=== PATIENT | female | born 1995 | race African-American/Black ===

== ENCOUNTER 2016-03-19 20:56 | Emergency (ER) | payer OTHER ==
[~2016-03-19] VITALS: Ht 167.6 cm; Wt 72.6 kg
[~2016-03-19 20:56] MED LIST: BACTRIM DS TAB1 EACH PO; CIPRO500 MG PO; CLEOCIN HCL300 MG PO; FLAGYL500 MG PO; IBUPROFEN 600600 M1 PO; NOHOMEMEDICATIONS; ONDANSETRON HCL4 M2 PO; WAL-PROFEN200 MG PO; ZANTAC 150MG T150 MG PO; ZOFRAN4 MG PO
[2016-03-19 23:09] LABS: URINE BILIRUBIN NEGATIVE (Negative); URINE BLOOD 3+ (Negative); URINE COLOR YELLOW; URINE GLUCOSE-RANDOM* NEGATIVE (Negative); URINE KETONES TRACE (Negative); URINE LEUKOCYTES-REFLEX NEGATIVE (Negative); URINE PROTEIN (DIPSTICK) NEGATIVE (Negative); URINE UROBILINOGEN 0.2 E.U./dl (0.2-1.0)
[2016-03-19 23:19] LABS: CASTS None Seen /LPF (None Seen); SQUAMOUS >10 Many /LPF (0-3)
[2016-03-19 23:22] LABS: CRYSTALS None Seen /LPF (None Seen); URINE RBC 3-10 Few /HPF (0-2); URINE WBC-REFLEX None Seen /HPF (0-5)
[2016-03-20 00:18] LABS: ABSOLUTE NEUTROPHILS 3.7 thou/uL (1.4-8.2); BASOPHILS 0.9 % (0.0-2.0); EOSINOPHILS 5.7 % (0.0-3.0); HEMOGLOBIN 12.8 gm/dL (12.0-15.0); MCH 28.9 pg (26.0-34.0); MCHC 33.6 % (28.0-37.0); MCV 86.1 fL (80.0-100.0); MONOCYTES 5.9 % (1.0-8.0); PLATELET COUNT 349 thou/uL (150-400); POLYS 48.5 % (36.0-66.0); RBC 4.41 mil/uL (4.20-5.00); RDW 13.4 % (10.5-14.5); WBC 7.7 thou/uL (4.0-11.0)
[2016-03-20 00:26] LABS: MANUAL DIFF NO
[2016-03-20 00:58] VITALS: BP 116/62
[2016-03-23 13:07] LABS: CHLAMYDIA TRACHOMATIS-PCR Negative (Negative); NEISSERIA GONORRHEA-PCR Negative (Negative)
== END 2016-03-20 01:00 | disposition home or self-care (01) ==
LOC: ER 20:56
PROVIDERS: Physician Assistant
DX: N93.8 Other specified abnormal uterine and vaginal bleeding (principal); F31.9 Bipolar disorder, unspecified; J45.909 Unspecified asthma, uncomplicated; Z88.1 Allergy status to other antibiotic agents; Z88.0 Allergy status to penicillin; Z88.8 Allergy status to other drugs, medicaments and biological substances; Z77.22 Contact with and (suspected) exposure to environmental tobacco smoke (acute) (chronic); F10.99 Alcohol use, unspecified with unspecified alcohol-induced disorder

== ENCOUNTER 2018-01-04 17:35 | Emergency (ER) | payer OTHER ==
[~2018-01-04] VITALS: Ht 154.9 cm; Wt 73.9 kg
[~2018-01-04 17:35] MED LIST changes: +IBUPROFEN 800800 M1 PO; +LIORESAL 10 MG10 MG PO; +MOBIC15 MG PO; +NAPROSYN500 MG PO
[2018-01-04 18:03] LABS: URINE BLOOD NEGATIVE (Negative); URINE CLARITY SL CLOUDY; URINE COLOR YELLOW; URINE GLUCOSE-RANDOM* NEGATIVE (Negative); URINE KETONES 1+ (Negative); URINE NITRITE-REFLEX NEGATIVE (Negative); URINE PROTEIN (DIPSTICK) NEGATIVE (Negative); URINE SPECIFIC GRAVITY >= 1.030 (1.005-1.035); URINE UROBILINOGEN 0.2 E.U./dl (0.2-1.0)
[2018-01-04 18:04] LABS: ICTOTEST (BILI CONFIRMATORY) Negative (Negative); URINE BILIRUBIN NEGATIVE (Negative); URINE LEUKOCYTES-REFLEX 1+ (Negative)
[2018-01-04 18:16] LABS: CALCIUM OXALATE 0-3 Few /LPF (None Seen); CASTS None Seen /LPF (None Seen); MUCUS >6 Heavy strn/LPF (None Seen); SQUAMOUS >10 Many /LPF (0-3); URINE RBC 3-10 Few /HPF (0-2); URINE WBC-REFLEX 6-15 Few /HPF (0-5)
[2018-01-04 19:47] VITALS: BP 113/42
[2018-01-04] MEDS ORDERED: KEFLEX500 M1 PO (20:01)
[2018-01-04] MEDS ORDERED: METRONIDAZOLE500 M4 PO (20:01)
== END 2018-01-04 20:10 | disposition home or self-care (01) ==
LOC: ER 17:35
PROVIDERS: Emergency Medicine
DX: N76.0 Acute vaginitis (principal); B96.89 Other specified bacterial agents as the cause of diseases classified elsewhere; N39.0 Urinary tract infection, site not specified; F17.210 Nicotine dependence, cigarettes, uncomplicated; F31.9 Bipolar disorder, unspecified; J45.909 Unspecified asthma, uncomplicated; Z88.0 Allergy status to penicillin; Z88.1 Allergy status to other antibiotic agents; Z88.8 Allergy status to other drugs, medicaments and biological substances

== ENCOUNTER 2019-04-26 02:37 | Emergency (ER) | payer OTHER ==
[~2019-04-26] VITALS: Ht 154.9 cm; Wt 69.8 kg
[~2019-04-26 02:37] MED LIST changes: +KEFLEX500 M1 PO; +METRONIDAZOLE500 M4 PO
[2019-04-26 02:38] VITALS: BP 123/62
[2019-04-26] MEDS ORDERED: IBUPROFEN 800800 M1 PO (02:43)
[2019-04-26] MEDS ORDERED: CLOTRIMAZOLE45 GM VAG (02:43)
== END 2019-04-26 04:53 | disposition home or self-care (01) ==
LOC: ER 02:37
DX: N76.0 Acute vaginitis (principal); J45.909 Unspecified asthma, uncomplicated; Z79.899 Other long term (current) drug therapy; Z88.1 Allergy status to other antibiotic agents; Z88.8 Allergy status to other drugs, medicaments and biological substances; Z88.0 Allergy status to penicillin

== ENCOUNTER 2019-08-06 23:31 | Emergency (ER) | payer OTHER ==
[~2019-08-06] VITALS: Ht 154.9 cm; Wt 68.0 kg
[~2019-08-06 23:31] MED LIST changes: +CLOTRIMAZOLE45 GM VAG
[2019-08-06 23:38] VITALS: BP 121/61
[2019-08-06] MEDS ORDERED: CLARITIN10 MG PO (23:40)
[2019-08-06] MEDS ORDERED: FLONASE 0.05%50 MCG NARES (23:40)
[2019-08-07] MEDS ORDERED: METROGEL-VAGINA70 GM VAG (00:23)
== END 2019-08-07 00:31 | disposition home or self-care (01) ==
LOC: ER 23:31
DX: N89.8 Other specified noninflammatory disorders of vagina (principal); F31.9 Bipolar disorder, unspecified; J45.909 Unspecified asthma, uncomplicated; Z79.899 Other long term (current) drug therapy; Z88.1 Allergy status to other antibiotic agents; Z88.0 Allergy status to penicillin; Z88.8 Allergy status to other drugs, medicaments and biological substances

== ENCOUNTER 2020-02-25 23:12 | Emergency (ER) | payer OTHER ==
[~2020-02-25] VITALS: Ht 154.9 cm; Wt 69.8 kg
[~2020-02-25 23:12] MED LIST changes: +CLARITIN10 MG PO; +FLONASE 0.05%50 MCG NARES; +METROGEL-VAGINA70 GM VAG
[2020-02-26 00:56] VITALS: BP 120/76
== END 2020-02-26 01:04 | disposition home or self-care (01) ==
LOC: ER 23:12
DX: N89.8 Other specified noninflammatory disorders of vagina (principal); J45.909 Unspecified asthma, uncomplicated; Z79.1 Long term (current) use of non-steroidal anti-inflammatories (NSAID); Z79.899 Other long term (current) drug therapy; Z88.0 Allergy status to penicillin; Z88.1 Allergy status to other antibiotic agents; Z88.8 Allergy status to other drugs, medicaments and biological substances

== ENCOUNTER 2020-05-14 16:38 | Emergency (ER) | payer OTHER ==
[~2020-05-14] VITALS: Ht 154.9 cm; Wt 70.8 kg
[2020-05-14 16:39] VITALS: BP 135/75
[2020-05-14 17:05] LABS: URINE BILIRUBIN NEGATIVE (Negative); URINE BLOOD NEGATIVE (Negative); URINE CLARITY CLEAR; URINE COLOR YELLOW; URINE GLUCOSE-RANDOM* NEGATIVE (Negative); URINE KETONES NEGATIVE (Negative); URINE LEUKOCYTES-REFLEX NEGATIVE (Negative); URINE NITRITE-REFLEX NEGATIVE (Negative); URINE PROTEIN (DIPSTICK) NEGATIVE (Negative); URINE SPECIFIC GRAVITY 1.025 (1.005-1.035)
== END 2020-05-14 18:57 | disposition left against medical advice (07) ==
LOC: ER 16:38
PROVIDERS: Nurse Practitioner
DX: R30.0 Dysuria (principal); J45.909 Unspecified asthma, uncomplicated; Z79.1 Long term (current) use of non-steroidal anti-inflammatories (NSAID); Z79.899 Other long term (current) drug therapy; Z88.0 Allergy status to penicillin; Z88.1 Allergy status to other antibiotic agents; Z88.8 Allergy status to other drugs, medicaments and biological substances

== ENCOUNTER 2020-09-26 02:13 | Emergency (ER) | payer OTHER ==
[~2020-09-26] VITALS: Ht 160 cm; Wt 74.4 kg
[2020-09-26 02:18] VITALS: BP 110/58
[2020-09-26 04:54] LABS: URINE BILIRUBIN NEGATIVE (Negative); URINE BLOOD NEGATIVE (Negative); URINE CLARITY CLEAR; URINE COLOR YELLOW; URINE GLUCOSE-RANDOM* NEGATIVE (Negative); URINE KETONES NEGATIVE (Negative); URINE LEUKOCYTES-REFLEX NEGATIVE (Negative); URINE NITRITE-REFLEX NEGATIVE (Negative); URINE PROTEIN (DIPSTICK) NEGATIVE (Negative); URINE SPECIFIC GRAVITY 1.025 (1.005-1.035); URINE UROBILINOGEN 0.2 E.U./dl (0.2-1.0)
[2020-09-26] MEDS ORDERED: DIFLUCAN150 MG PO (05:02)
== END 2020-09-26 05:17 | disposition home or self-care (01) ==
LOC: ER 02:13
PROVIDERS: Emergency Medicine
DX: N72 Inflammatory disease of cervix uteri (principal); J45.909 Unspecified asthma, uncomplicated; Z79.899 Other long term (current) drug therapy; Z88.0 Allergy status to penicillin; Z88.1 Allergy status to other antibiotic agents; Z77.22 Contact with and (suspected) exposure to environmental tobacco smoke (acute) (chronic)

== ENCOUNTER → 2021-02-27 | Emergency (ER) | payer OTHER ==
[~2021-02-27] MED LIST changes: +DIFLUCAN150 MG PO
== END ==
LOC: ER 21:13
DX: N93.9 Abnormal uterine and vaginal bleeding, unspecified (principal); Z88.0 Allergy status to penicillin; Z88.1 Allergy status to other antibiotic agents; Z88.8 Allergy status to other drugs, medicaments and biological substances; Z53.21 Procedure and treatment not carried out due to patient leaving prior to being seen by health care provider

== ENCOUNTER 2021-04-06 18:04 | Emergency (ER) | payer OTHER ==
[~2021-04-06] VITALS: Ht 154.9 cm; Wt 71.7 kg
[2021-04-06 18:57] LABS: ABSOLUTE NEUTROPHILS 5.9 thou/uL (1.4-8.2); BASOPHILS 0.4 % (0.0-2.0); HEMATOCRIT 36.9 % (37.0-47.0); HEMOGLOBIN 12.1 gm/dL (12.0-15.0); MCH 30.4 pg (26.0-34.0); MCHC 32.7 g/dL (28.0-37.0); MONOCYTES 8.5 % (1.0-8.0); PLATELET COUNT 283 thou/uL (150-400); POLYS 65.1 % (36.0-66.0); RBC 3.97 mil/uL (4.20-5.00); RDW 14.6 % (10.5-14.5)
[2021-04-06 19:08] LABS: URINE BILIRUBIN NEGATIVE (Negative); URINE BLOOD 3+ (Negative); URINE CLARITY CLEAR; URINE COLOR YELLOW; URINE GLUCOSE-RANDOM* NEGATIVE (Negative); URINE KETONES NEGATIVE (Negative); URINE NITRITE-REFLEX NEGATIVE (Negative); URINE PROTEIN (DIPSTICK) NEGATIVE (Negative); URINE UROBILINOGEN 0.2 E.U./dl (0.2-1.0)
[2021-04-06 19:09] LABS: URINE LEUKOCYTES-REFLEX 2+ (Negative)
[2021-04-06 19:09] LABS: CALCIUM 8.7 mg/dL (8.5-10.1); CREATININE 0.8 mg/dL (0.6-1.0); POTASSIUM 3.8 mmol/L (3.5-5.1)
[2021-04-06 19:16] LABS: TOTAL BILIRUBIN 0.2 mg/dL (0.2-1.0)
[2021-04-06 19:18] LABS: SQUAMOUS 4-10 Moderate /LPF (0-3)
[2021-04-06 19:19] LABS: CASTS None Seen /LPF (None Seen); URINE RBC 1-2 Rare /HPF (NONE SEEN); URINE WBC-REFLEX 6-15 Few /HPF (0-5)
[2021-04-06 19:20] LABS: BACTERIA-REFLEX >30 Many /HPF (None Seen); CRYSTALS None Seen /LPF (None Seen); MUCUS 0-3 Light strn/LPF (None Seen)
[2021-04-06 22:09] VITALS: BP 132/70
[2021-04-07] MEDS ORDERED: MACROBID 100 M100 M1 PO (18:55)
[2021-04-07] MEDS ORDERED: METRONIDAZOLE500 M4 PO (18:55)
== END 2021-04-06 22:10 | disposition home or self-care (01) ==
LOC: ER 18:04
PROVIDERS: Emergency Medicine
DX: N93.9 Abnormal uterine and vaginal bleeding, unspecified (principal); J45.909 Unspecified asthma, uncomplicated; Z88.1 Allergy status to other antibiotic agents; Z88.0 Allergy status to penicillin; Z79.1 Long term (current) use of non-steroidal anti-inflammatories (NSAID)